=== PATIENT | male | born 1980 | race Caucasian/White ===

== ENCOUNTER 2022-07-18 08:01 | Outpatient (CLI) | payer OTHER, SELFPAY ==
--- NOTE | 2022-07-18 06:28 | W.ANESCHARGE ---
Anesthesia Charges Start Date/Time Anesthesia Start Date: 07/18/22 Anesthesia Start Time: 08:45 Stop Date/Time Anesthesia Stop Date: 07/18/22 Anesthesia Stop Time: 09:10
--- NOTE | 2022-07-18 09:13 | W.ANESCHARGE ---
Anesthesia Charges Start Date/Time Anesthesia Start Date: 07/18/22 Anesthesia Start Time: 08:45 Stop Date/Time Anesthesia Stop Date: 07/18/22 Anesthesia Stop Time: 09:10
== END 2022-07-18 08:02 | disposition home or self-care (01) ==
LOC: OP CLINIC 08:01
PROVIDERS: PCP Family Medicine; Visit Provider Surgery
DX: Z12.11 Encounter for screening for malignant neoplasm of colon (principal); K57.32 Diverticulitis of large intestine without perforation or abscess without bleeding; K57.30 Diverticulosis of large intestine without perforation or abscess without bleeding
CPT/HCPCS: 00812; 45378

== ENCOUNTER 2023-09-05 13:15 | Outpatient (CLI) | payer OTHER, SELFPAY | END 2023-09-05 13:16 | disposition home or self-care (01) | PROVIDERS: PCP Family Medicine; Visit Provider Nurse Practitioner Family | DX: J02.9 Acute pharyngitis, unspecified (principal) | CPT/HCPCS: 87070 ==

== ENCOUNTER 2024-02-22 13:10 | Outpatient (CLI) | payer OTHER, SELFPAY | END 2024-02-22 13:11 | disposition home or self-care (01) | LOC: NFLDREF 02-23 20:18 | PROVIDERS: PCP Family Medicine; Referring Provider Family Medicine; Visit Provider Family Medicine | DX: E78.00 Pure hypercholesterolemia, unspecified (principal); I10 Essential (primary) hypertension | CPT/HCPCS: 80053; 80061 ==

== ENCOUNTER 2024-03-14 07:15 | Outpatient (CLI) | payer OTHER, SELFPAY | END 2024-03-14 07:16 | disposition home or self-care (01) | LOC: US 07:16 | PROVIDERS: PCP Family Medicine; Visit Provider Family Medicine | DX: R79.89 Other specified abnormal findings of blood chemistry (principal); N28.1 Cyst of kidney, acquired; K76.0 Fatty (change of) liver, not elsewhere classified | CPT/HCPCS: 76700 ==